=== PATIENT | female | born 1950 | race Caucasian/White ===

== ENCOUNTER 2021-07-07 10:14 | Inpatient (IN) | payer MEDICARE ==
[~2021-07-07] VITALS: Ht 152.4 cm; Wt 61.9 kg
[2021-07-07] MEDS ORDERED: mag hydrox/Alum hydrox/simeth 30ml oral suspension PO PRN (10:20)
[2021-07-07] MEDS ORDERED: acetaminophen 325mg tablet PO PRN ×2 (10:20)
[2021-07-07] MEDS ORDERED: magnesium hydroxide 30ml (MOM) UD suspension PO PRN (10:20)
[2021-07-07] MEDS ORDERED: loperamide 2mg capsule PO PRN (10:20)
[2021-07-07] MEDS ORDERED: TROS20TA4 PO (10:58)
[2021-07-07] MEDS ORDERED: AMLO5TAB16 PO (10:58)
[2021-07-07] MEDS ORDERED: CHOL100046 PO (10:58)
--- NOTE | 2021-07-07 11:50 | NUR ---
ADMIT NOTE Pt has not been eating or sleeping, laid in bed all day and hadn't showered for 10 days. Pt is experiencing paranoid delusions about people breaking into her home. Pt shared she became lethargic and unable to complete task at home due to medications she was prescribed. She then said, "doctors confuse you because one will say one thing and then another will say something else." Personal belongings inventoried and placed in locker. All her clothing washed and returned to her. Pt does not smoke. Pt oriented to the unit. She is currently in a group.
--- NOTE | 2021-07-07 15:04 | NUR ---
Patient had a lumpectomy on June 03. Dr. Scott Henao II did the surgery. Pt admitted with steri-strips on both her right nipple and incision under her right arm. Per Dr. Henao, "I don't know why those are still there, she can leave them and they will fall off or someone can remove them." Pt wants to leave them.
--- NOTE | 2021-07-07 16:33 | NUR ---
NURSING PROGRESS NOTE Legal hold: 5150 Client involuntary status for GD Report received from nurse with use of SBAR Pt is an admit Why are they here: Pt has not been eating or sleeping. she lays in bed all day and hasn't showered in 10 days. She also experiences paranoid delusions about people breaking into the house. Assessment What has happened this shift: Pt presents delusional and paranoid. She is asking staff if they are going to "radiate me." She talks about people in her neighborhood that are going to kill her. S/I, H/I: Denies A/VH: Denies Sleep: Awake all shift ADL's: Requires guidance and prompts Group attendance: No Were Meds taken: None ordered on this shift Any med S/E: N/A Mental Status Exam Appearance: Nicely dressed in personal clothing upon admit Eye contact: Fair Behavior: Withdrawn, Isolative Speech: low volume, mumbles Mood: Depressed Affect: Flat Thought process: Paranoid delusions Thought Content: people trying to kill her Cognition: A/O x2 Insight: Poor Judgment: Poor Interventions PRN's used: N/A Therapeutic interventions: Admission 1:1 with therapeutic communication and active listening, encouraged to shower and change clothes, assisted pt in the shower encouraging her to use soap and bathe, monitored pt safety, maintained q 15 min safety checks. Restraints/seclusion/emergency medication: N/A Justification: Pt is in need of medication stabilization. She is in need of a safe therapeutic environment for stabilization.
[2021-07-07 19:26] VITALS: BP 136/82
[2021-07-08 07:29] LABS: HEMOGLOBIN A1C 5.6 % (4.5-6.2)
[2021-07-08 07:48] LABS: CHOL/HDL RATIO 3.9 (0.00-4.99); CHOLESTEROL 195 MG/DL (0-200); HDL CHOLESTEROL 50 MG/DL (35-60); LDL CHOLESTEROL 116 MG/DL (50-100)
[2021-07-08 07:49] LABS: TRIGLYCERIDES 141 MG/DL (20-135)
[2021-07-08 08:00] VITALS: BP 148/91
[2021-07-08] MEDS: TROSPIUM CHLORIDE 20 MG PO SCH (08:00)
[2021-07-08] MEDS: cholecalciferol (vitamin D3) 1,000 unit (25mcg) tablet PO SCH (08:14)
[2021-07-08] MEDS: amLODIPine 5mg tablet PO SCH (08:14)
--- NOTE | 2021-07-08 16:23 | NUR ---
NURSING PROGRESS NOTE Legal hold: 5150 Client involuntary status for GD Report received from nurse, LISA Lucas with use of SBAR Why are they here: Pt has not been eating or sleeping. She lays in bed all day and hasn't showered in 10 days. She also experiences paranoid delusions about people breaking into the house. Assessment What has happened this shift: Pt has been quiet and cooperative all shift. She is observed with a blanket around her in the main dayroom for the majority of the day. She attended group but did not participate. She denies SI. Pt refused to sign LISSET for [facility] [employer] stating, "those medications did not help me and I don't want them." Pt received a call from her daughter, Glo today. S/I, H/I: Denies A/VH: Denies Sleep: Awake all shift ADL's: Requires supervision to prompt her to wash Group attendance: Yes Were Meds taken: Yes Any med S/E: N/A Mental Status Exam Appearance: Elderly lady, salt & pepper hair, wearing green scrubs with a blanket wrapped around her shoulders. Eye contact: Fair Behavior: Withdrawn, guarded Speech: low volume, mumbles Mood: Depressed Affect: Flat Thought process: Disorganized, Confused Thought Content: Not sure what she is doing here Cognition: A/O x2 Insight: Poor Judgment: Poor Interventions PRN's used: N/A Therapeutic interventions: Provided 1:1 with therapeutic communication and active listening, encouraged pt to shower, wash her clothes and change, encouraged her to go to groups, monitored pt safety, maintained q 15 min safety checks. Restraints/seclusion/emergency medication: N/A Justification: Pt is in need of medication stabilization. She is in need of a safe therapeutic environment for stabilization.
[2021-07-08 20:00] VITALS: BP 128/96
--- NOTE | 2021-07-09 01:50 | NUR ---
NURSING PROGRESS NOTE Legal hold: 5150, GD Why are they here: Pt has not been eating or sleeping. She lays in bed all day and hasn't showered in 10 days. She also experiences paranoid delusions about people breaking into the house. What has happened this shift: Pt appears anxious, she is observed standing in the hallway just outside the nurses station staring at this RN. When asked if she needs anything she responds no. She does admit to feeling anxious, but will not state why. She declines medication intervention. called, PRN Ativan 0.5 mg TID PRN added to regimen if pt needs it. RN explains this to pt, but she kindly refuses. Pt denies SI/HI/AV/VH. Pt stands for nearly 2 hours staring at the nurses in the charting room. At 2200, RN gently guides pt to her room and helps her lay down in bed and encourages her to try to sleep. Pt is able to Fall asleep shortly after. Justification for treatment: Pt is in need of medication stabilization. She is in need of a safe therapeutic environment for stabilization.
[2021-07-09] MEDS: cholecalciferol (vitamin D3) 1,000 unit (25mcg) tablet PO SCH (07:46)
[2021-07-09] MEDS: amLODIPine 5mg tablet PO SCH (07:47)
[2021-07-09] MEDS: TROSPIUM CHLORIDE 20 MG PO SCH (07:54)
[2021-07-09 08:00] VITALS: BP 131/77
[2021-07-09] MEDS ORDERED: ESCITALOPRAM OXALATE 5 MG TABLET PO SCH (08:00)
--- NOTE | 2021-07-09 17:16 | NUR ---
NURSING PROGRESS NOTE Legal hold: 5150 Client involuntary status for GD Report received from nurse, LISA Montes with use of SBAR Why are they here: Pt has not been eating or sleeping. She lays in bed all day and hasn't showered in 10 days. She also experiences paranoid delusions about people breaking into the house. Assessment What has happened this shift: Pt awoke somewhat disoriented, but mostly agreeable. Pt took am meds with little fuss. Pt has anxious affect and feels like people are out to get her and that she is totally dependent, "I can't walk at all" With encouragement, pt was able to stand and walk to the dayroom with no assistance. Pt has been quiet and cooperative all shift. S/I, H/I: Denies A/VH: Denies Sleep: Awake all shift ADL's: Requires supervision to prompt her to wash Group attendance: Yes Were Meds taken: Yes Any med S/E: N/A Mental Status Exam Appearance: Elderly lady, salt & pepper hair, wearing green scrubs with a blanket wrapped around her shoulders. Eye contact: Fair Behavior: Withdrawn, guarded Speech: low volume, mumbles Mood: Depressed Affect: Flat Thought process: Disorganized, Confused Thought Content: Not sure what she is doing here Cognition: A/O x2 Insight: Poor Judgment: Poor Interventions PRN's used: N/A Therapeutic interventions: Provided 1:1 with therapeutic communication and active listening, encouraged pt to shower, wash her clothes and change, encouraged her to go to groups, monitored pt safety, maintained q 15 min safety checks. Restraints/seclusion/emergency medication: N/A Justification: Pt is in need of medication stabilization. She is in need of a safe therapeutic environment for stabilization.
[2021-07-09 20:34] VITALS: BP 133/75
--- NOTE | 2021-07-10 01:02 | NUR ---
NURSING PROGRESS NOTE Legal hold: 5150 Client involuntary status for GD Report received from nurse, LISA Stephenson with use of SBAR Why are they here: Pt has not been eating or sleeping. She lays in bed all day and hasn't showered in 10 days. She also experiences paranoid delusions about people breaking into the house. Assessment What has happened this shift: Pt sitting in community room at the start of shift watching tv, she did not engage with peers. She continues to report feeling very depressed, especially in regards to the loss of her daughter and her living/financial issues. S/I, H/I: Denies A/VH: Denies Sleep: sleeps well throughout the night ADL's: prompts Group attendance: N/A Were Meds taken: none scheduled this shift Any med S/E: none reported or observed Mental Status Exam Appearance: wearing green scrubs, good hygiene and grooming Eye contact: Fair Behavior: Withdrawn, guarded Speech: low volume Mood: Depressed Affect: congruent with mood Thought process: confused at times Thought Content: WNL Cognition: A/O x2 Insight: Poor Judgment: Poor Interventions PRN's used: N/A Therapeutic interventions: Provided 1:1 with therapeutic communication and active listening, encouraged pt to shower, wash her clothes and change, encouraged her to go to groups, monitored pt safety, maintained q 15 min safety checks. Restraints/seclusion/emergency medication: N/A Justification: Pt is in need of medication stabilization. She is in need of a safe therapeutic environment for stabilization.
[2021-07-10 07:46] VITALS: BP 160/86
--- NOTE | 2021-07-10 09:24 | NUR ---
Pt's home medication Trospium Chloride was discontinued per report pt. no longer takes, endorse to Dr. Isaac.
[2021-07-10] MEDS: ESCITALOPRAM OXALATE 5 MG TABLET PO SCH (10:25)
[2021-07-10] MEDS: amLODIPine 5mg tablet PO SCH (10:26)
[2021-07-10] MEDS: cholecalciferol (vitamin D3) 1,000 unit (25mcg) tablet PO SCH (10:26)
--- NOTE | 2021-07-10 17:55 | NUR ---
NURSING PROGRESS NOTE Legal hold: 5250 Client involuntary status for GD Report received from nurse, Destiny Ram RN Why are they here: Pt has not been eating or sleeping. She lays in bed all day and hasn't showered in 10 days. She also experiences paranoid delusions about people breaking into the house. Assessment What has happened this shift: Received pt. sleeping in bed at the beginning of the shift, she was awoken to attend breakfast in the Group Room, however refused stating, "I can't swallow." Pt. also refused all of her AM medications, however when her later visited she consented to taking them with his encouragement. Pt. was slightly irritable and stated, "With friends like you, who needs enemies?" Pt. was also able to eat 50% of her breakfast with her husbands encouragement. Afterwards, pt. retreated back to bed where she proceeded to isolate throughout the day, napping intermittently. 1:1 was completed at bedside, pt. denies S/I, H/I, or A/V/IQBAL. Her affect appears flat and depressed, and she does admit to depression, but will not talk about what she is depressed about. Pt. isolates throughout the day, and requires encouragement in order to perform ADLs. S/I, H/I: Denies A/VH: Denies, does not appear to be internally preoccupied Sleep: Sleep hours are 8.5, and pt. naps throughout much of the shift ADL's: Requires direction and encouragement Group attendance: Yes Were Meds taken: Pt. initially refused, however later consented when was present Any med S/E: None Mental Status Exam Appearance: Hair and clothing are disheveled r/t laying in bed Eye contact: Fair Behavior: Resistive to care, fatigued, slightly irritated, guarded, and isolative Speech: Soft and minimal with a latent response Mood: Depressed Affect: Flat Thought process: Disorganization Thought Content: Delusions Cognition: A&O X3 Insight: Poor Judgment: Poor Interventions PRN's used: N/A Therapeutic interventions: Introduced self and established rapport, maintained a safe and supportive environment, ensured contract for safety, provided clear and simple instructions, attempted to orient to reality, encouraged performance of ADLs and provided assistance as needed, provided medication education and maintained Q 15min safety checks. Restraints/seclusion/emergency medication: N/A Justification: Pt. requires interruption of current crisis, medication adjustments, and a safe and supportive environment.
[2021-07-10 20:00] VITALS: BP 128/69
[2021-07-10] MEDS: risperiDONE 0.5mg tablet PO SCH (20:29)
[2021-07-10] MEDS: LORazepam 0.5 MG tablet PO PRN (20:29)
--- NOTE | 2021-07-11 00:26 | NUR ---
NURSING PROGRESS NOTE Legal hold: 5250 Client involuntary status for GD Report received from nurse, Johnnie RN Why are they here: Pt has not been eating or sleeping. She lays in bed all day and hasn't showered in 10 days. She also experiences paranoid delusions about people breaking into the house. Assessment What has happened this shift: Pt sitting by herself in the community room, she did not engage with peers. She did interact during 1:1 and my focus was trying to educate her about the importance of taking the medicine to help her paranoia and mood. By does have some insight that her paranoia is not based in reality, but she says it is hard to get past that feeling. Pt having anxiety due to the paranoia so Ativan was given with her HS Risperdal to help relax patient. Pt was afraid to go to bed because a male peer had wandered into her room, I had to sit with the patient to make her feel safe until she fell asleep. S/I, H/I: Denies A/VH: Denies Sleep: pt reported feeling like she slept poorly last night ADL's: Requires direction and encouragement Group attendance: N/A Were Meds taken: Pt. initially refused, but with education and prompting she agreed to take them Any med S/E: None Mental Status Exam Appearance: wearing own pajamas, hygiene fair Eye contact: Fair Behavior: Resistive to care, paranoid Speech: Soft, normal rate Mood: Depressed Affect: congruent Thought process: patient has underlying paranoia and distrust Thought Content: did talk about some of her life stressors, loss of daughter, her marriage and need for outside friends and support Cognition: A&O X3 Insight: Poor Judgment: Poor Interventions PRN's used: Ativan Therapeutic interventions: Introduced self and established rapport, maintained a safe and supportive environment, ensured contract for safety, provided clear and simple instructions, attempted to orient to reality, encouraged performance of ADLs and provided assistance as needed, provided medication education and maintained Q 15min safety checks. Restraints/seclusion/emergency medication: N/A Justification: Pt. requires interruption of current crisis, medication adjustments, and a safe and supportive environment.
--- NOTE | 2021-07-11 07:25 | NUR ---
Initial: Pt admitted w/ depression per EMR. Currently on Regular diet w/ low PO intake, avg 37% x 10 meals partially meeting needs. Pt could benefit from Ensure Enlive BID to assist w/ meeting nutritional needs. [facility] 07/10 w/ PRN bowel care available. Will continue to monitor. Recs: 1. Continue Regular diet as tolerated; encourage PO 2. Ensure Enlive BIDBD 3. Bowel care PRN 4. Weekly wts Addendum: 07/11/21 at [address] Amended: Links added.
[2021-07-11 07:55] VITALS: BP 154/96
[2021-07-11] MEDS: ESCITALOPRAM OXALATE 5 MG TABLET PO SCH (09:01)
[2021-07-11] MEDS: cholecalciferol (vitamin D3) 1,000 unit (25mcg) tablet PO SCH (09:01)
[2021-07-11] MEDS: amLODIPine 5mg tablet PO SCH (09:02)
[2021-07-11] MEDS: risperiDONE 0.5mg tablet PO SCH ×2 (09:02→20:46)
--- NOTE | 2021-07-11 12:09 | NUR ---
Pt. has a new onset of a painful reddened left eye which looks like possible conjunctivitis. V/S are WNL. Hospitalist, Dr. Rand notified and obtained orders for Vigamox eye drops TID to be administered until redness is gone.
[2021-07-11] MEDS ORDERED: moxifloxacin 0.5% ophthalmic drops 3ml LEFTEYE SCH (13:00)
--- NOTE | 2021-07-11 14:37 | NUR ---
NURSING PROGRESS NOTE Legal hold: 5250 Client involuntary status for GD Report received from nurse, Destiny Ram RN Why are they here: Pt has not been eating or sleeping. She lays in bed all day and hasn't showered in 10 days. She also experiences paranoid delusions about people breaking into the house. Assessment What has happened this shift: Received pt. sleeping in bed at the beginning of the shift, she was awoken and again required encouragement and direction to attend breakfast in the Group Room. Pt. is now eating independently without needed prompting and encouragement as before. She continues to be resistant to taking medications and requires education and much encouragement from this senior grant writer. Pt. makes delusional statements regarding why she believes she cannot take medications, she states, "They make it worse. I can't walk or talk." Active listening and positive encouragement was provided and pt. finally consented to taking her medications. She continues to deny S/I, however reports ongoing depression. Pt. denies any A/V/IQBAL,and does not appear to be internally preoccupied. Pt. again makes delusional statements and states, "This place is horrible. You're a patient here and they are torturing you too." Her again came into visit and visit appeared to go well. This senior grant writer endorsed husbands's phone number to ARON Stewart in order to discuss medications. Pt. remained up throughout the day, but is withdrawn from others. S/I, H/I: Denies A/VH: Denies, does not appear to be internally preoccupied Sleep: Sleep hours are 7 ADL's: Requires direction and encouragement Group attendance: N/A Were Meds taken: Yes, with much encouragement Any med S/E: None Mental Status Exam Appearance: Neat and appropriately dressed Eye contact: Fair Behavior: Resistive to care, fatigued, slightly irritated, guarded, and isolative Speech: Soft and minimal with a latent responses Mood: Depressed Affect: Flat Thought process: Linear with thought blocking Thought Content: Paranoid delusions Cognition: A&O X3 Insight: Poor Judgment: Poor Interventions PRN's used: N/A Therapeutic interventions: Maintained a safe and supportive environment, ensured contract for safety, provided clear and simple instructions, attempted to orient to reality, encouraged performance of ADLs and provided assistance as needed, provided medication education, provided active listening and positive encouragement, and maintained Q 15min safety checks. Restraints/seclusion/emergency medication: N/A Justification: ARON Dillard, pt. is unable to formulate a safety street to meet her basic needs and requires medications adjustments. She requires a safe and supportive environment. Addendum: 07/11/21 at 1616 by Erica Fontanez RN Pt. presented with with increased confusion and paranoid delusions in the afternoon. She stated, "Everyone wants to kill me and they are all laughing at me." She changed her clothes multiple times and appeared very anxious, stating, "I just don't know what to do honey?!" This senior grant writer provided active listening and positive encouragement with some effectiveness. PRN Ativan was offered, however pt. adamantly refused stating, "I'm not taking another f...ing pill!" Will continue to monitor closely.
[2021-07-11] MEDS ORDERED: polyvinyl alcohol ophthalmic drops 15ml bottle LEFTEYE PRN (15:55)
--- NOTE | 2021-07-11 17:40 | NUR ---
Pt. refused to have weekly skin pictures taken of areas on right nipple and under right arm. However, areas were assessed by this program writer and no s/s of redness, drainage, or infection noted.
[2021-07-11 19:41] VITALS: BP 153/90
[2021-07-11] MEDS: lactose-reduced food (Ensure Enlive) - 237ml bottle PO SCH (20:00)
--- NOTE | 2021-07-12 01:20 | NUR ---
NURSING PROGRESS NOTE Legal hold: 5250 Client involuntary status for GD Report received from nurse, GELACIO Mccullough Why are they here: Pt has not been eating or sleeping. She lays in bed all day and hasn't showered in 10 days. She also experiences paranoid delusions about people breaking into the house. Assessment What has happened this shift: Pt sitting in group room at start of shift. Pt has depressed affect head bowed resting in hands. "I don't want to be here, there is nothing for me to do nowhere to sleep." Assured pt there was a bed for her to sleep in. Pt admits to depression denies SI. When asked about SI she laughed inappropriately and said "how would I do it?" Pt stayed in group room and had snack. She sits isolated by herself in a chair that she can not see the TV. Assisted to find her room at HS. Pt kept insisting there were other men that slept in there. Reassured that staff will keep a close eye on her and keep her safe. She came out once but with more reassurance returned to room and went to sleep. S/I, H/I: Denies A/VH: Denies, does not appear to be internally preoccupied Sleep: asleep at this time ADL's: Requires direction and encouragement Group attendance: N/A Were Meds taken: Yes, with much encouragement Any med S/E: None Mental Status Exam Appearance: Neat and appropriately dressed Eye contact: Fair Behavior: Resistive to care, fatigued, slightly irritated, guarded, and isolative Speech: Soft and minimal with a latent responses Mood: Depressed Affect: Flat Thought process: Linear with thought blocking Thought Content: Paranoid delusions Cognition: A&O X3 Insight: Poor Judgment: Poor Interventions PRN's used: N/A Therapeutic interventions: Maintained a safe and supportive environment, ensured contract for safety, provided clear and simple instructions, attempted to orient to reality, encouraged performance of ADLs and provided assistance as needed, provided medication education, provided active listening and positive encouragement, and maintained Q 15min safety checks. Restraints/seclusion/emergency medication: N/A Justification: ARON Dillard, pt. is unable to formulate a safety street to meet her basic needs and requires medications adjustments. She requires a safe and supportive environment.
--- NOTE | 2021-07-12 07:31 | NUR ---
CM-Pre Dcp Presenting Issues: Pt close to d/c ready needs dcp Interventions: Clinician had t/c with pt's spouse, per t/c, pt is not eligible for MediCal. Spouse reports that he can hire a private duty worker so they can supervise medication-remind pt to take meds, and assist pt w/basic ADLs in the home. Clinician had t/c with [facility] [phone] and referred pt for services. Per t/c the on-call SW will contact clinician to coordinate intake appointment in the home. Plan: Pt needs post-hospital f/u with Dr. Lazo office. Lurdes Bautista LCSW Addendum: 07/12/21 at 0742 by Lurdes Bautista SS Amended: Links added.
[2021-07-12 07:57] VITALS: BP 130/80
[2021-07-12] MEDS: ESCITALOPRAM OXALATE 5 MG TABLET PO SCH (08:11)
[2021-07-12] MEDS: risperiDONE 0.5mg tablet PO SCH ×2 (08:11→20:00)
[2021-07-12] MEDS: amLODIPine 5mg tablet PO SCH (08:11)
[2021-07-12] MEDS: cholecalciferol (vitamin D3) 1,000 unit (25mcg) tablet PO SCH (08:12)
[2021-07-12] MEDS: lactose-reduced food (Ensure Enlive) - 237ml bottle PO SCH ×2 (13:00→20:00)
--- NOTE | 2021-07-12 13:34 | NUR ---
5250 upheld for GD
--- NOTE | 2021-07-12 13:35 | NUR ---
5270 upheld for GD
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
[2021-07-12 20:07] VITALS: BP 139/89
[2021-07-12] MEDS: mirtazapine 15mg tablet PO SCH (20:15)
--- NOTE | 2021-07-13 03:16 | NUR ---
NURSING PROGRESS NOTE Legal hold: 5250 Client involuntary status for GD Report received from GELACIO Calvo Why are they here: Pt has not been eating or sleeping. She lays in bed all day and hasn't showered in 10 days. She also experiences paranoid delusions about people breaking into the house. Assessment What has happened this shift: Patient seen at bedside. She's irritable and says she doesn't want anything, but left alone. She appears depressed, with flat affect. Patient says she has no energy. Asked if she would like a snack at snack time, but she declined. The patient refused all medications. Patient did not get out of bed tonight. S/I, H/I: Denies A/VH: Denies Sleep: See sleep assessment ADL's: Requires direction and encouragement Group attendance: N/A Were Meds taken: No Any med S/E: None Mental Status Exam Appearance: Neat and appropriately dressed Eye contact: Fair Behavior: Resistive to care, fatigued, slightly irritated, guarded, and isolative Speech: Soft and minimal with a latent responses Mood: Depressed Affect: Flat Thought process: Linear with thought blocking Thought Content: Paranoid delusions Cognition: A&O X3 Insight: Poor Judgment: Poor Interventions PRN's used: N/A Therapeutic interventions: Maintained a safe and supportive environment, ensured contract for safety, provided clear and simple instructions, attempted to orient to reality, encouraged performance of ADLs and provided assistance as needed, provided medication education, provided active listening and positive encouragement, and maintained Q 15min safety checks. Restraints/seclusion/emergency medication: N/A Justification: ARON Dillard, pt. is unable to formulate a safety street to meet her basic needs and requires medications adjustments. She requires a safe and supportive environment.
[2021-07-13] MEDS: ESCITALOPRAM OXALATE 5 MG TABLET PO SCH ×2 (08:00→08:46)
[2021-07-13] MEDS: cholecalciferol (vitamin D3) 1,000 unit (25mcg) tablet PO SCH ×2 (08:00→08:46)
[2021-07-13 08:42] VITALS: BP 148/86
[2021-07-13] MEDS: lactose-reduced food (Ensure Enlive) - 237ml bottle PO SCH ×2 (08:45→20:00)
[2021-07-13] MEDS: risperiDONE 0.5mg tablet PO SCH ×3 (08:46→21:00)
[2021-07-13] MEDS: amLODIPine 5mg tablet PO SCH (08:46)
--- NOTE | 2021-07-13 09:04 | NUR ---
Pt. attended group today. We talked about Boundaries, the different kinds and how to communicate our boundaries to others. We also talked about 'I messages" and how to form an "I message" statement to help communicating our needs and wants. Pt. was very quiet during the group, she sat at the back of the group and did not interact with anyone. Her mood appeared depressive with a restricted affect. She declined sharing anything in the group. Her demeanor was calm and compliant. Her thought content and thought process appeared WNL but it was difficult to tell. She was alert and oriented X 4. Pt. came to the second group in the afternoon but left after a few minutes reporting she did not feel like she wanted to participate. In the second group she shared that she thought she was going home today, she reported her brought her clothes but they were all too small for her. She appeared fixated on clothing as she also note that what she was wearing (scrubs) did not fit her and she felt uncomfortable in the clothing. After stating this she left group. Her mood appeared anxious at this point and her thought content may have been paranoid. Raeann Ramirez, DEZ
--- NOTE | 2021-07-13 14:29 | NUR ---
CM-Pre-DCP Presenting Issues: Pt's a high risk for re-admission as pt needs additional caregiving support in the home. Interventions: Clinician had t/c with Mark Laird Dale Oconnell- [phone]- and provided referral for an intake for a private duty caregiver as pt's spouse agrees to pay for services. Per t/c, Ju will come up sometime tomorrow to complete an assessment w/pt and call spouse to coordinate service plan. Plan: Clinician will continue to engage family in dcp activities. Lurdes Bautista LCSW Addendum: 07/13/21 at 1437 by Lurdes Bautista SS Amended: Links added.
--- NOTE | 2021-07-13 19:08 | NUR ---
NURSING PROGRESS NOTE Legal hold: 5270 Client involuntary status for GD Report received from GELACIO Lucas with use of SBAR Why are they here: Pt has not been eating or sleeping. She lays in bed all day and hasn't showered in 10 days. She also experiences paranoid delusions about people breaking into the house. Assessment What has happened this shift: Received patient while she was sitting in a chair in her room. Patient was pleasant and cooperative, and informed that she had a good night of sleep. Patient requested to wait to go to the Community Room for breakfast, after her peers were all done eating their breakfast. Patient was allowed to wait and attempted to administer the patients medications scheduled for 0800. Patient was informed that I would be giving her medications while she was eating her breakfast, and she immediately stated Oh no, I dont know if I want to take them. Reviewed patients medications and purpose with the patient. Patient was given her Risperdal & Norvasc. After taking these medications, patient asked to wait one hour until she took the Lexapro and Vitamin D3. Informed the patient that we could wait for one hour. At approximately 0930, ARON Ovalle came to the patients bedside for a daily visit. Patient stated I feel like I am getting so much worse on these medications. I have no energy, I cant eat, I cant walk, Shawna tried, and I am so weak. Giuseppe continued to ask the patient what else was on her mind. Patient stated How am I going to get home? Where am I going to sleep tonight? How will my know when to pick me up? I used to have a home. I dont even know if I still have one. I used to have a phone. I dont even know if I still have one. I dont know where my is at? I love my but we are on different paths. I feel like we live on different planets. Giuseppe asked the patient about possibly doing a CT Scan of her head, and the patient replied No. Giuseppe and the patient agreed that he will make some medication changes, then if she does not experience any changes in how she is feeling he would address possibly doing a CT scan again. Patient rested most of the morning, but then ambulated to the Community Room for lunch and sat with peers. After lunch, patient who really enjoys her roommates company, both went to the Community Room to watch others play games. Patient appeared to enjoy herself and participated in the laughter. Patient rested this afternoon in her bed. S/I, H/I: Denies A/VH: Denies Sleep: 9.25 hours ADL's: Can complete simple tasks without assistance. Group attendance: Patient was encouraged to attend the Group Meeting, but declined. Were Meds taken: Patient agreed to take her Risperdal and Norvasc, but later declined the Norvasc and Vitamin D3 Any med S/E: None reported or observed. Mental Status Exam Appearance: Elderly attractive female dressed in red, white and blue jacket and shoulder length oconnor hair. Eye contact: Fair Behavior: Pleasant and cooperative. Can sometimes self-isolate, but also enjoyed time with peers. Speech: Speaks softly and is easy to understand. Mood: Depressed Affect: Flat Thought process: Linear Thought Content: Meeting own needs Cognition: A&O X4 Insight: Fair Judgment: Fair Interventions PRN's used: None Therapeutic interventions: Maintained a safe and supportive environment, ensured contract for safety, provided clear and simple instructions, attempted to orient to reality, encouraged performance of ADLs and provided assistance as needed, provided medication education, provided active listening and positive encouragement, and maintained Q 15min safety checks. Restraints/seclusion/emergency medication: N/A Justification: ARON Dillard, pt. is unable to formulate a safety street to meet her basic needs and requires medications adjustments. She requires a safe and supportive environment.
[2021-07-13] MEDS: mirtazapine 15mg tablet PO SCH ×2 (20:11→21:00)
[2021-07-13 20:26] VITALS: BP 125/67
--- NOTE | 2021-07-14 02:29 | NUR ---
NURSING PROGRESS NOTE Legal hold: 5250 Client involuntary status for GD Report received from GELACIO Blair Why are they here: Pt has not been eating or sleeping. She lays in bed all day and hasn't showered in 10 days. She also experiences paranoid delusions about people breaking into the house. Assessment What has happened this shift: Patient was napping at shift change. She eventually got out of bed and sat on the side of it. She was also seen moving about her room, and appears to be steady on her feet with no problem. She does not leave her room. She reports that she's depressed, but not suicidal. Denies other MH symptoms. When HS meds brought to her, she says she won't take them. "I took them this morning and they make me feel worse, dizzy, weak, and I can't walk." No amount of talking changed her mind. Patient went to sleep in her clothes on top of her bed with lights on. S/I, H/I: Denies A/VH: Denies Sleep: See sleep assessment ADL's: Requires direction and encouragement Group attendance: N/A Were Meds taken: No Any med S/E: None Mental Status Exam Appearance: Neat and appropriately dressed Eye contact: Fair Behavior: Resistive to care, fatigued, slightly irritated, guarded, and isolative Speech: Soft and minimal with a latent responses Mood: Depressed Affect: Flat Thought process: Linear with thought blocking Thought Content: Paranoid delusions Cognition: A&O X3 Insight: Poor Judgment: Poor Interventions PRN's used: N/A Therapeutic interventions: Maintained a safe and supportive environment, ensured contract for safety, provided clear and simple instructions, attempted to orient to reality, encouraged performance of ADLs and provided assistance as needed, provided medication education, provided active listening and positive encouragement, and maintained Q 15min safety checks. Restraints/seclusion/emergency medication: N/A Justification: ARON Dillard, pt. is unable to formulate a safety street to meet her basic needs and requires medications adjustments. She requires a safe and supportive environment.
[2021-07-14 07:30] VITALS: BP 148/87
[2021-07-14] MEDS: cholecalciferol (vitamin D3) 1,000 unit (25mcg) tablet PO SCH ×2 (07:33→11:11)
[2021-07-14] MEDS: amLODIPine 5mg tablet PO SCH ×2 (07:33→08:00)
[2021-07-14] MEDS: ESCITALOPRAM OXALATE 5 MG TABLET PO SCH ×2 (07:33→11:11)
[2021-07-14] MEDS: lactose-reduced food (Ensure Enlive) - 237ml bottle PO SCH ×2 (08:06→20:00)
--- NOTE | 2021-07-14 15:17 | NUR ---
NURSING PROGRESS NOTE Legal hold: 5250 Client involuntary status for GD Report received from GELACIO Lucas Why are they here: Pt has not been eating or sleeping. She lays in bed all day and hasn't showered in 10 days. She also experiences paranoid delusions about people breaking into the house. Assessment What has happened this shift: Patient resting comfortably in bed at beginning of shift. Allowed me to do a physical assessment but refused her medications. She states the meds are making her feel worse. Patient did not complain of anything. came and visited later after breakfast and convinced her to take her medications. These were given with no complications at all. Patient has been resting in bed since lunch. S/I, H/I: Denies A/VH: Denies Sleep: See sleep assessment ADL's: Requires direction and encouragement Group attendance: Yes Were Meds taken: Refused at first, compliant after her visited Any med S/E: None Mental Status Exam Appearance: Neat and appropriately dressed Eye contact: Fair Behavior: Resistive to care, fatigued, slightly irritated, guarded, and isolative Speech: Soft and minimal with a latent responses Mood: Depressed Affect: Flat Thought process: Linear with thought blocking Thought Content: Paranoid delusions Cognition: A&O X3 Insight: Poor Judgment: Poor Interventions PRN's used: N/A Therapeutic interventions: Maintained a safe and supportive environment, ensured contract for safety, provided clear and simple instructions, attempted to orient to reality, encouraged performance of ADLs and provided assistance as needed, provided medication education, provided active listening and positive encouragement, and maintained Q 15min safety checks. Restraints/seclusion/emergency medication: N/A Justification: ARON Dillard, pt. is unable to formulate a safety street to meet her basic needs and requires medications adjustments. She requires a safe and supportive environment.
[2021-07-14 20:57] VITALS: BP 121/58
[2021-07-14] MEDS: mirtazapine 15mg tablet PO SCH (21:04)
[2021-07-14] MEDS: risperiDONE 0.5mg tablet PO SCH (21:05)
--- NOTE | 2021-07-14 23:59 | NUR ---
Nursing Progress Note 5250 hold Why they are here: Pt has not been eating or sleeping. She lays in bed all day and hasn't showered in 10 days. She also experiences paranoid delusions about people breaking into the house. What happened this shift: PT lays in bed majority of the shift in [facility] either with her eyes closed, or open staring at a curtain ahead. Pt allowed physical assessment and was polite with RN, but does not offer much to a conversation. She becomes agitated when RN tries to give her HS medications. Her is on the phone pleading with her to take them, she responds, oh just give it a break, leave me alone. RN asks if taking them in applesauce would help and she said, no I cant swallow them! Rn reminds her she is able to eat and swallow food. Rn offers to crush them in applesauce to which she finally agrees. Pt takes 3 bites (about 70% of the medication dosage) then refuses to eat anymore. She then tells her to just go to hell. PT has a flat affect and appears distant and resigned from the situation. RN stresses the importance of her medication and trying to get back home to her family, but she just responds, I just cant please top. And stare off past RN. Justification: Per ARON Stewart, pt. is unable to formulate a safety street to meet her basic needs and requires medications adjustments. She requires a safe and supportive environment.
[2021-07-15 07:30] VITALS: BP 163/86
[2021-07-15] MEDS: amLODIPine 5mg tablet PO SCH ×2 (07:52→08:23)
[2021-07-15] MEDS: ESCITALOPRAM OXALATE 5 MG TABLET PO SCH ×2 (07:52→08:23)
[2021-07-15] MEDS: cholecalciferol (vitamin D3) 1,000 unit (25mcg) tablet PO SCH ×2 (07:52→08:23)
[2021-07-15] MEDS: lactose-reduced food (Ensure Enlive) - 237ml bottle PO SCH ×3 (07:57→20:00)
--- NOTE | 2021-07-15 13:31 | NUR ---
Reassessment: Pt continues on Regular diet w/ similar intake, avg 42$ x 11 meals and only ~12% x 4 ONS partially meeting needs. Per documentation, pt states that the medications make her feel worse and take away her energy. LBM 5/10 w/ PRN bowel care available. No change to recommendations at this time, will continue to monitor. Recs; 1. Continue Regular diet as tolerated; encourage PO 2. Ensure Enlive BIDBD; consider d/c if pt does not consume them 3. Bowel care PRN 4. Weekly wts Addendum: 07/15/21 at [address] Amended: Links added.
--- NOTE | 2021-07-15 15:06 | NUR ---
NURSING PROGRESS NOTE Legal hold: 5250 Client involuntary status for GD Report received from GELACIO Lucas Why are they here: Pt has not been eating or sleeping. She lays in bed all day and hasn't showered in 10 days. She also experiences paranoid delusions about people breaking into the house. Assessment What has happened this shift: Patient resting comfortably in bed at beginning of shift. Refused her medications again this morning. She also refused to get up for breakfast or eat breakfast. Another RN on the floor went and talked with her and convinced her to get go into the dining area for lunch. attempted to give medications again with yogurt, patient took swallowed all medications with no problems. came by and visited after breakfast. Patient has been out of her room more today sitting in the dining area. S/I, H/I: Denies A/VH: Denies Sleep: See sleep assessment ADL's: Requires direction and encouragement Group attendance: Yes Were Meds taken: Yes Any med S/E: None Mental Status Exam Appearance: Neat and appropriately dressed Eye contact: Fair Behavior: Resistive to care, fatigued, slightly irritated, guarded, and isolative Speech: Soft and minimal with a latent responses Mood: Depressed Affect: Flat Thought process: Linear with thought blocking Thought Content: Paranoid Cognition: A&O X3 Insight: Poor Judgment: Poor Interventions PRN's used: N/A Therapeutic interventions: Maintained a safe and supportive environment, ensured contract for safety, provided clear and simple instructions, attempted to orient to reality, encouraged performance of ADLs and provided assistance as needed, provided medication education, provided active listening and positive encouragement, and maintained Q 15min safety checks. Restraints/seclusion/emergency medication: N/A Justification: Per ARON Stewart, pt. is unable to formulate a safety street to meet her basic needs and requires medications adjustments. She requires a safe and supportive environment.
[2021-07-15 19:42] VITALS: BP 127/72
[2021-07-15] MEDS: risperiDONE 0.5mg tablet PO SCH (21:22)
[2021-07-15] MEDS: mirtazapine 15mg tablet PO SCH (21:22)
--- NOTE | 2021-07-15 23:17 | NUR ---
Nursing Progress Note 5250 hold Why they are here: Pt has not been eating or sleeping. She lays in bed all day and hasn't showered in 10 days. She also experiences paranoid delusions about people breaking into the house. What happened this shift: PT isolates to her room, sitting up in her bedside chair at shift change. She allows physical assessment and vital signs and is polite with staff. She reluctantly takes both of her HS medications with a spoon full of applesauce. She states she would rather not, but after some encouragement she does. Rn asks how her visit with her went and she responds, "he is a pain in the ass". RN asks how she is truly feeling right now she she says, "like I want a different life, I bet you can understand." She has a flat affect, and does not speak with any emotion. She denies SI/HI/AH/VH. She does not appear to be responding to internal stimuli. She is observed socializing with her roommate, and files her nails with an german board while they chat. Justification: Per ARON Stewart, pt. is unable to formulate a safety street to meet her basic needs and requires medications adjustments. She requires a safe and supportive environment.
[2021-07-16 07:35] VITALS: BP 149/78
[2021-07-16] MEDS: lactose-reduced food (Ensure Enlive) - 237ml bottle PO SCH ×2 (08:00→20:00)
[2021-07-16] MEDS: ESCITALOPRAM OXALATE 5 MG TABLET PO SCH (10:17)
[2021-07-16] MEDS: amLODIPine 2.5mg tablet PO SCH (10:18)
[2021-07-16] MEDS: cholecalciferol (vitamin D3) 1,000 unit (25mcg) tablet PO SCH (10:18)
--- NOTE | 2021-07-16 15:18 | NUR ---
NURSING PROGRESS NOTE Legal hold: 5250 Client involuntary status for GD Report received from nurse, Destiny Ram RN Why are they here: Pt has not been eating or sleeping. She lays in bed all day and hasn't showered in 10 days. She also experiences paranoid delusions about people breaking into the house. Assessment What has happened this shift: Received pt. sleeping in bed at the beginning of the shift, she was awoken by staff and required direction in order to attend breakfast in the Group Room. Pt. is now eating, however requires ongoing encouragement. She refused her ordered Ensure despite education. After breakfast, pt. returned back to bed where she remained withdrawn, napping intermittently. This abstract writer attempted to administer pt's medications and provided education, however she adamantly refused stating irritably, "I'm not taking them!" This abstract writer attempted to provide further education and encouragement, however pt. turned away sating, "I'm going to be here forever anyway so it doesn't matter. Why do they load us up with all these pills?!" Later, pt's came to visit and she consented to taking her medications in his company with [employer]. Pt. continues to report ongoing depression and appears to be anxious with possible ongoing paranoid delusions AEB reluctance to take medications and minimal interactions with others. S/I, H/I: Denies A/VH: Denies, does not appear to be internally preoccupied Sleep: Sleep hours are 8.75, and pt. naps intermittently during the shift ADL's: Requires direction and encouragement Group attendance: N/A Were Meds taken: Yes, with much encouragement Any med S/E: None Mental Status Exam Appearance: Hair is greasy and clothing is somewhat disheveled, pt. is encouraged to shower Eye contact: Fair Behavior: Resistive to care, fatigued, slightly irritated, guarded, anxious, and isolative Speech: Soft, WNL Mood: Depressed Affect: Flat Thought process: Linear with thought blocking Thought Content: Some ongoing paranoid delusions Cognition: A&O X3 Insight: Poor Judgment: Poor Interventions PRN's used: N/A Therapeutic interventions: Maintained a safe and supportive environment, ensured contract for safety, provided clear and simple instructions, attempted to orient to reality, encouraged performance of ADLs and provided assistance as needed, provided medication education and encouragement, provided active listening and positive encouragement, and maintained Q 15min safety checks. Restraints/seclusion/emergency medication: N/A Justification: ARON Dillard, pt. continues to require a safe and supportive environment and will need resources and transportation upon discharge.
[2021-07-16 20:00] VITALS: BP 113/73
[2021-07-16] MEDS: mirtazapine 15mg tablet PO SCH (20:26)
[2021-07-16] MEDS: risperiDONE 0.5mg tablet PO SCH (20:26)
--- NOTE | 2021-07-17 04:27 | NUR ---
Nursing Progress Note 5250 hold Why they are here: Pt has not been eating or sleeping. She lays in bed all day and hasn't showered in 10 days. She also experiences paranoid delusions about people breaking into the house. What happened this shift: Pt in her room sitting in the chair. Pt talking with her roommate and laughed when the roommate made a joke. Pt agreeable to an assessment, vital signs and took her medications in applesauce without complaints other than the medications tasting poorly. Pt denies S/I, H/I and A/VH. She is very brief with her responses. Pt isolates herself to her room and is currently sleeping. Justification: Per ARON Stewart, pt. is unable to formulate a safety street to meet her basic needs and requires medications adjustments. She requires a safe and supportive environment.
[2021-07-17 07:42] VITALS: BP 128/81
[2021-07-17] MEDS: lactose-reduced food (Ensure Enlive) - 237ml bottle PO SCH ×2 (08:00→20:00)
[2021-07-17] MEDS: amLODIPine 2.5mg tablet PO SCH (08:54)
[2021-07-17] MEDS: ESCITALOPRAM OXALATE 5 MG TABLET PO SCH (08:54)
[2021-07-17] MEDS: cholecalciferol (vitamin D3) 1,000 unit (25mcg) tablet PO SCH (08:54)
--- NOTE | 2021-07-17 10:07 | NUR ---
Pt. consented to ordered CT scan of head r/t confusion with ongoing encouragement from this rfp writer. She denied the need for any PRN anxiolytic prior. Pt. was taken for CT in a wheelchair accompanied by staff and security. Pt. tolerated the procedure well and afterwards returned back to bed.
--- NOTE | 2021-07-17 11:19 | NUR ---
Pt's , Rene, cell phone .
--- NOTE | 2021-07-17 16:04 | NUR ---
NURSING PROGRESS NOTE Legal hold: 5250 Client involuntary status for GD Report received from nurse, Destiny Ram RN Why are they here: Pt has not been eating or sleeping. She lays in bed all day and hasn't showered in 10 days. She also experiences paranoid delusions about people breaking into the house. Assessment What has happened this shift: Received pt. sleeping in bed at the beginning of the shift, she was again awoken by staff and required direction in order to attend breakfast in the Group Room, however pt. refused her meal. After breakfast, pt. again returned back to bed where she remained withdrawn, napping intermittently. Pt. was cooperative with her medications this morning with encouragement. However, she asked this financial writer in an irritable manner, "How idalia you like to be in my spot? Because you will be one day!" Pt. continues to report ongoing depression and appears to be anxious with possible ongoing paranoid delusions AEB reluctance to take medications and minimal interactions with others. Pt. required encouragement to attend meals with others in the Group Room and states in what appears to be a paranoid manner, "There is no room to sit. No one wants me there." She does attend lunch and eats approximately 50% of her meal. Pt. continued to refuse her ordered Ensure, but does agree to try strawberry flavor with encouragement from this financial writer, dietary was notified of pt's preference. Pt. again isolated in her room throughout much of the day napping or sitting quietly. S/I, H/I: Denies A/VH: Denies, does not appear to be internally preoccupied Sleep: Sleep hours are 7.25,and pt. naps intermittently during the shift ADL's: Requires direction and encouragement Group attendance: N/A Were Meds taken: Yes, with encouragement Any med S/E: None Mental Status Exam Appearance: Neat and appropriately dressed, pt. showered yesterday Eye contact: Fair Behavior: Resistive to care, fatigued, slightly irritated, guarded, anxious, and isolative Speech: Soft, WNL Mood: Depressed Affect: Blunted Thought process: Linear with thought blocking Thought Content: Some ongoing paranoid delusions Cognition: A&O X3 Insight: Poor Judgment: Poor Interventions PRN's used: N/A Therapeutic interventions: Maintained a safe and supportive environment, ensured contract for safety, provided clear and simple instructions, attempted to orient to reality, encouraged performance of ADLs and provided assistance as needed, provided medication education and encouragement, provided active listening and positive encouragement, and maintained Q 15min safety checks. Restraints/seclusion/emergency medication: N/A Justification: Per Ryan PA, pt. continues to require a safe and supportive environment and is not stable enough for discharge at this time.
[2021-07-17 19:46] VITALS: BP 117/62
[2021-07-17] MEDS: mirtazapine 15mg tablet PO SCH (20:54)
[2021-07-17] MEDS: risperiDONE 0.5mg tablet PO SCH (20:54)
--- NOTE | 2021-07-18 03:33 | NUR ---
Nursing Progress Note Legal Hold: 5250 Patient on involuntary hold for GD Why they are here: Pt has not been eating or sleeping. She lays in bed all day and hasn't showered in 10 days. She also experiences paranoid delusions about people breaking into the house. What happened this shift: Patient laying in bed at the beginning of shift. Pleasant and cooperative with care; compliant with medication. Patient denies SI, HI, A/VH; she appears paranoid and guarded. Patient remained in bed and responds minimally. She is observed sleeping; appears to be having difficulty staying asleep this shift. Justification: Per ARON Stewart, pt. is unable to formulate a safety street to meet her basic needs and requires medications adjustments. She requires a safe and supportive environment.
--- NOTE | 2021-07-18 05:29 | NUR ---
CLIENT NEEDS SLEEP MEDS: Client stays in bed during the night. She sleeps off and on, and does not ask for sleep meds. Client would benefit from sleep meds.
--- NOTE | 2021-07-18 07:10 | NUR ---
Reassessment: Pt continues on Regular diet w/ low PO intake, avg 30% x 9 meals and mostly refusing ONS, not meeting needs at this time. Per documentation, pt appears to stay in bed most of the time. RN states that pt is willing to try strawberry flavor ONS but is unsure if pt will drink them, will also provide strawberry milkshake. RN states difficulty obtaining any other food preferences. [facility] 07/16 w/ PRN bowel care available. Will continue to monitor. Recs; 1. Continue Regular diet as tolerated; encourage PO 2. [place] Ensure Enlive BIDBD; consider d/c if pt does not consume them 3. [place] shake BIDLD 4. Bowel care PRN 5. Weekly wts Addendum: 07/18/21 at [address] Amended: Links added.
--- NOTE | 2021-07-18 07:23 | NUR ---
Per enrobing machine corder, dietary is currently out of strawberry Ensures, which is pt's flavor preference. [employer] Video Editor will put in an order for strawberry shakes with meals r/t pt's ongoing decreased intake. Staff to continue to encourage pt. to eat and assess for any other food preferences. Addendum: 07/18/21 at 1200 by Erica Fontanez RN This proposal writer spoke to pt's with her consent regarding her food preferences as pt. was unable to state these herself, pt's diet was updated.
[2021-07-18 08:00] VITALS: BP 149/86
[2021-07-18] MEDS: lactose-reduced food (Ensure Enlive) - 237ml bottle PO SCH ×2 (08:00→20:00)
[2021-07-18] MEDS: ESCITALOPRAM OXALATE 5 MG TABLET PO SCH (08:48)
[2021-07-18] MEDS: cholecalciferol (vitamin D3) 1,000 unit (25mcg) tablet PO SCH (08:48)
[2021-07-18] MEDS: amLODIPine 2.5mg tablet PO SCH (08:49)
--- NOTE | 2021-07-18 16:17 | NUR ---
NURSING PROGRESS NOTE Legal hold: 5250 Client involuntary status for GD Report received from nurse, Destiny Ram RN Why are they here: Pt has not been eating or sleeping. She lays in bed all day and hasn't showered in 10 days. She also experiences paranoid delusions about people breaking into the house. Assessment What has happened this shift: Received pt. sleeping in bed at the beginning of the shift, she was awoken by staff and required direction in order to attend breakfast in the Group Room, eating approximately 75% of her meal. However, pt. continues to refuse her ordered Ensure and this was endorsed to ARON Stewart. After breakfast, pt. returned to her room and 1:1 was completed at bedside. Pt. presented as guarded and slightly irritable and initially refused her medications stating, "Tell me what I'm taking, they just gave me all of these a few hours ago!" (Referring to her HS medications). Pt. continues to present with confusion and paranoid delusions. This senior writer provided medication education and positive encouragement and pt. consented to taking her medications with hesitation. She continues to report ongoing depression and states, "I'm not getting any better." Weekly pictures were obtained of surgical incisions on pt's right breast and underarm, and areas appear to be healing well. Pt's called with questions regarding the possibility of ECT treatment for the pt. and this was endorsed to ARON Stewart. Pt. continues to isolate in her room throughout much of the day napping or sitting quietly. She reported an episode of diarrhea and Imodium was administered with effectiveness. S/I, H/I: Denies A/VH: Denies, does not appear to be internally preoccupied Sleep: Sleep hours are 8.5,and pt. naps intermittently during the shift ADL's: Requires direction and encouragement Group attendance: N/A Were Meds taken: Yes, with encouragement Any med S/E: None Mental Status Exam Appearance: Neat and appropriately dressed Eye contact: Fair Behavior: Resistive to care, fatigued, slightly irritated, guarded, anxious, and isolative Speech: Soft, WNL Mood: Depressed Affect: Blunted Thought process: Linear with thought blocking Thought Content: Some ongoing paranoid delusions Cognition: A&O X3 Insight: Poor Judgment: Poor Interventions PRN's used: N/A Therapeutic interventions: Maintained a safe and supportive environment, ensured contract for safety, provided clear and simple instructions, attempted to orient to reality, encouraged performance of ADLs and provided assistance as needed, provided medication education and encouragement, monitored nutrition intake, provided active listening and positive encouragement, and maintained Q 15min safety checks. Restraints/seclusion/emergency medication: N/A Justification: Per Ryan, PA, pt. continues to require a safe and supportive environment and is not stable enough for discharge at this time.
[2021-07-18 19:42] VITALS: BP 105/53
[2021-07-18] MEDS: mirtazapine 15mg tablet PO SCH (20:43)
[2021-07-18] MEDS: LORazepam 0.5 MG tablet PO PRN (20:46)
[2021-07-18] MEDS: risperiDONE 0.5mg tablet PO SCH (20:50)
--- NOTE | 2021-07-19 04:30 | NUR ---
Nursing Progress Note Legal Hold: 5250 Patient on involuntary hold for GD Why they are here: Pt has not been eating or sleeping. She lays in bed all day and hasn't showered in 10 days. She also experiences paranoid delusions about people breaking into the house. What happened this shift: Patient laying in bed awake at the beginning of shift. Mostly pleasant and cooperative; Refused 0.5mg Risperidone (half the ordered dose). PRN Ativan provided for increased anxiety and agitation. Patient is upset with risperidone order being increased to 1mg; she stated, "I don't even know why they have me on this stuff," and continued to explain that she's experiencing an increase in fatigue. However, patient was observed initiating more conversation with staff that walk by her room this shift. Patient denies SI, HI, A/VH. She refused to participate in HS snack and did not want the ordered Ensure; ate an applesauce with her meds and remained isolative to her room. Patient is observed sleeping and does not appear to be having difficulty. Justification: Per ARON Stewart, pt. is unable to formulate a safety street to meet her basic needs and requires medications adjustments. She requires a safe and supportive environment.
[2021-07-19 07:43] VITALS: BP 138/78
[2021-07-19] MEDS: lactose-reduced food (Ensure Enlive) - 237ml bottle PO SCH ×2 (08:00→20:00)
[2021-07-19] MEDS: cholecalciferol (vitamin D3) 1,000 unit (25mcg) tablet PO SCH (08:31)
[2021-07-19] MEDS: amLODIPine 2.5mg tablet PO SCH (08:31)
[2021-07-19] MEDS: ESCITALOPRAM OXALATE 5 MG TABLET PO SCH (08:34)
--- NOTE | 2021-07-19 09:25 | NUR ---
CM-Pre-dcp Presenting Issues: Pt's d/c is pending linkages to additional support w/ADLs in the home. Clinician had provided referral to [facility]. Interventions: Clinician had t/c with MARJ Oshea @ [facility] to f/u on referral. Per t/c Dorie had spoken w/pt's spouse and spouse was not sure if he could afford to pay for 12-15 hr/week. Dorie had given spouse contact info for other providers as well but have not heard back from the spouse. Plan: Clinician to f/u with spouse. Lurdes Bautista LCSW Addendum: 07/19/21 at 0934 by Lurdes Bautista Amended: Links added.
--- NOTE | 2021-07-19 14:36 | NUR ---
NURSING PROGRESS NOTE Legal hold: 5250 Client involuntary status for GD Report received from GELACIO Lucas Why are they here: Pt has not been eating or sleeping. She lays in bed all day and hasn't showered in 10 days. She also experiences paranoid delusions about people breaking into the house. Assessment What has happened this shift: Patient resting comfortably in bed at beginning of shift. Allowed me to do a physical assessment. She states the meds are not helping at all and, "these are too much" Pt took the medications in applesauce. Patient did not complain of anything. came and visited later after breakfast and stated to staff that he feels his is improving and asked to speak with provider. Phone number and message delivered to provider. Patient has been resting in bed since lunch. S/I, H/I: Denies A/VH: Denies Sleep: See sleep assessment ADL's: Requires direction and encouragement Group attendance: Yes Were Meds taken: Refused at first, compliant after her visited Any med S/E: None Mental Status Exam Appearance: Neat and appropriately dressed Eye contact: Fair Behavior: Resistive to care, fatigued, slightly irritated, guarded, and isolative Speech: Soft and minimal with a latent responses Mood: Depressed Affect: Flat Thought process: Linear with thought blocking Thought Content: Paranoid delusions Cognition: A&O X3 Insight: Poor Judgment: Poor Interventions PRN's used: N/A Therapeutic interventions: Maintained a safe and supportive environment, ensured contract for safety, provided clear and simple instructions, attempted to orient to reality, encouraged performance of ADLs and provided assistance as needed, provided medication education, provided active listening and positive encouragement, and maintained Q 15min safety checks. Restraints/seclusion/emergency medication: N/A Justification: Per ARON Stewart, pt. is unable to formulate a safety street to meet her basic needs and requires medications adjustments. She requires a safe and supportive environment.
[2021-07-19 19:00] VITALS: BP 110/63
[2021-07-19] MEDS: mirtazapine 15mg tablet PO SCH (20:55)
[2021-07-19] MEDS: LORazepam 0.5 MG tablet PO PRN (20:55)
--- NOTE | 2021-07-20 04:10 | NUR ---
Nursing Progress Note Legal Hold: 5250 Patient on involuntary hold for GD Why they are here: Pt has not been eating or sleeping. She lays in bed all day and hasn't showered in 10 days. She also experiences paranoid delusions about people breaking into the house. What happened this shift: Patient laying in bed awake at the beginning of shift. Pleasant and cooperative with care; hesitant but compliant with medication. PRN Ativan provided. Patient denies SI, HI, A/VH; continues to present paranoid. Refuses to leave her room and doesn't engage with any peers. She states, "I'm doing fine," but tearful upon procedure writer asking about a safe discharge plan and continued, "I wish I did but I don't." Patient refused HS snack; observed sleeping and does not appear to be having difficulty. Justification: Per ARON Stewart, pt. is unable to formulate a safety street to meet her basic needs and requires medications adjustments. She requires a safe and supportive environment.
[2021-07-20 08:00] VITALS: BP 131/71
[2021-07-20] MEDS: ESCITALOPRAM OXALATE 5 MG TABLET PO SCH (08:28)
[2021-07-20] MEDS: cholecalciferol (vitamin D3) 1,000 unit (25mcg) tablet PO SCH (08:28)
[2021-07-20] MEDS: lactose-reduced food (Ensure Enlive) - 237ml bottle PO SCH (08:28)
[2021-07-20] MEDS: amLODIPine 2.5mg tablet PO SCH (08:29)
--- NOTE | 2021-07-20 11:18 | NUR ---
Discharge Presenting Issues: Per attending PA, pt is ready for d/c. Interventions: Clinician had t/c w/pt's spouse and coordinated transportation for pt to rt home. Per t/c, pt's spouse has hired a personal duty attendant to start tomorrow, spouse will pick her up between 7 & 8 PM, care team notified. Plan: Pt to d/c jack. Lurdes Bautista LCSW Addendum: 07/20/21 at 1134 by Lurdes Bautista SS Amended: Links added.
--- NOTE | 2021-07-20 15:24 | NUR ---
NURSING PROGRESS NOTE: GEOFFREY Legal hold: 5250 Client involuntary status for GD Report received from LISA Lucas via [facility]. Why are they here: Pt has not been eating or sleeping. She lays in bed all day and hasn't showered in 10 days. She is experiencing paranoid delusions about people breaking into the house. Assessment What has happened this shift: Received patient sleeping at shift change. Pt woke and attended breakfast. Pt was compliant with medication, hesitated at first then took pills with applesauce. Pt is being discharged to day around 1900. Pt denies all psychotic symptoms. Pt isolated to her room most of the shift waiting to go home. S/I, H/I: Pt denies both. A/VH: Pt denies both. Sleep: 7.0 hours per sleep assessment. ADL's: Independent. Group attendance: No. Were Meds taken: [place] Any med S/E: None Mental Status Exam Appearance: Neat and appropriately dressed Eye contact: Fair Behavior: Resistive to care, fatigued, slightly irritated, guarded, and isolative Speech: Soft and minimal with a latent responses Mood: Depressed Affect: Flat Thought process: Linear with thought blocking Thought Content: Paranoid delusions Cognition: A&O X3 Insight: Poor Judgment: Poor Interventions PRN's used: None Therapeutic interventions: Maintained a safe and supportive environment, ensured contract for safety, provided clear and simple instructions, attempted to orient to reality, encouraged performance of ADLs and provided assistance as needed, provided medication education, provided active listening and positive encouragement, and maintained Q 15min safety checks. Restraints/seclusion/emergency medication: N/A Justification: Per ARON Stewart, pt. is unable to formulate a safety street to meet her basic needs and requires medications adjustments. She requires a safe and supportive environment.
[2021-07-20] MEDS ORDERED: POLY15DR31 LEFTEYE (16:31)
[2021-07-20] MEDS ORDERED: AMLO2.5T5 PO (16:31)
[2021-07-20] MEDS ORDERED: ESCI5TAB PO (16:31)
[2021-07-20] MEDS ORDERED: MIRT-87 PO (16:31)
[2021-07-20 19:39] VITALS: BP 121/64
--- NOTE | 2021-07-20 19:45 | NUR ---
DISCHARGE NOTE Patient belongings returned and discharge instructions provided. Patient appeared happy and stable to discharge. She was assisted out with PCT and patient's picked her up outside.
== END 2021-07-20 19:45 | disposition home or self-care (01) | DRG 885 ==
LOC: ADULT MH 10:16
PROVIDERS: ADMIT Psychiatry & Neurology Psychiatry; ATTEND Psychiatry & Neurology Psychiatry
DX: F33.2 Major depressive disorder, recurrent severe without psychotic features (principal); Z93.3 Colostomy status; I10 Essential (primary) hypertension; F22 Delusional disorders; C50.919 Malignant neoplasm of unspecified site of unspecified female breast; Z63.4 Disappearance and death of family member; Z79.899 Other long term (current) drug therapy; Z88.0 Allergy status to penicillin; Z91.048 Other nonmedicinal substance allergy status; Z98.51 Tubal ligation status
CPT/HCPCS: 36415; 70450; 80061; 83036; 87081